=== PATIENT | female | born 2000 | race Caucasian/White ===

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

== ENCOUNTER 2022-05-21 22:30 | Emergency (ER) | payer BC | END 2022-05-22 01:44 | disposition left against medical advice (07) | LOC: ERS 22:30 | DX: Z53.21 Procedure and treatment not carried out due to patient leaving prior to being seen by health care provider (principal) | CPT/HCPCS: 93005 ==